=== PATIENT | male | born 1995 | race Caucasian/White ===

== ENCOUNTER 2024-02-24 22:11 | Inpatient (IN) | payer MEDICAID ==
[~2024-02-24] VITALS: Ht 182.9 cm; Wt 44.9 kg
[2024-02-24] MEDS: IV NORMAL SALINE 1000 ML BAG IV ONE (22:15)
[2024-02-24 22:32] LABS: BASOPHILS # (AUTO) 0.1 K/UL (0.0-0.2); BASOPHILS % (AUTO) 0.5 % (0.0-2.0); EOSINOPHILS % (AUTO) 0.1 % (0.0-7.0); HEMATOCRIT 31.6 % (36.7-47.1); HEMOGLOBIN 10.3 g/dL (12.5-16.3); LYMPHOCYTES % (AUTO) 7.9 % (20.5-51.5); MEAN CORPUSCULAR HEMOGLOBIN 24.8 uug (23.8-33.4); MEAN CORPUSCULAR HGB CONC 33 g/dL (32.5-36.3); MEAN CORPUSCULAR VOLUME 76.2 fL (73.0-96.2); MONOCYTES % (AUTO) 7.9 % (0.0-11.0); NEUTROPHILS % (AUTO) 83.6 % (38.5-71.5); PLATELET COUNT (AUTO) 470 K/uL (152-348); RED BLOOD CELL COUNT(AUTO) 4.15 MIL/uL (4.06-5.63); WHITE BLOOD COUNT (AUTO) 13.2 K/uL (3.6-10.2)
[2024-02-24 22:33] LABS: DIFFERENTIAL COMMENT 1
[2024-02-24 23:02] LABS: CALCIUM 8.2 mg/dL (8.5-10.1); CARBON DIOXIDE 23 mmol/L (21-32); CREATININE 0.9 mg/dL (0.6-1.3); GLUCOSE 147 mg/dL (74-106); NT-PRO BNP 127 pg/mL (0-125); UREA NITROGEN, BLOOD 10 mg/dL (7-18)
[2024-02-24 23:18] LABS: CHLORIDE 91 mmol/L (98-107); POTASSIUM 3.4 mmol/L (3.5-5.1); SODIUM SERUM 127 mmol/L (136-145)
[2024-02-24 23:25] LABS: LACTIC ACID 2.5 mmol/L (0.4-2.0)
[2024-02-24] MEDS ORDERED: SWABABLE VALVE TRANSFER SET EA MC ONE (23:48)
[2024-02-24] MEDS ORDERED: IOHEXOL 350 100 ML INFUS..BTL ONE (23:48)
[2024-02-24] MEDS ORDERED: IV NORMAL SALINE 250 ML IV ONE (23:48)
[2024-02-24] MEDS ORDERED: levoFLOXacin 500 MG/D5W 100 ML ONE (23:51)
[2024-02-25] MEDS: levoFLOXacin 500 MG/D5W 100ML PIGGYBACK IV ONE (00:10)
[2024-02-25 00:13] LABS: *BILIRUBIN,URIN NEGATIVE (NEGATIVE); *BLOOD, URINE NEGATIVE (NEGATIVE); *CLARITY,URINE CLEAR (CLEAR); *COLOR,URINE YELLOW (YELLOW); *KETONES,URINE NEGATIVE (NEGATIVE); *PROTEIN,URINE NEGATIVE (NEGATIVE); LEUKOCYTE ESTERASE ,URINE NEGATIVE (NEGATIVE); NITRITE, URINE NEGATIVE (NEGATIVE); UGLUCOSE NEGATIVE (NEGATIVE)
[2024-02-25] MEDS: IV LACTATED RINGERS SOLUTION 1,000 ML IV ONE (01:10)
[2024-02-25 01:38] LABS: BILIRUBIN,DIRECT 0.2 mg/dL (0.0-0.2); BILIRUBIN,TOTAL 0.6 mg/dL (0.2-1.0)
[2024-02-25 02:20] LABS: BACTERIA,URINE NONE SEEN /HPF (NONE SEEN); RBC,URINE 0-3 /HPF (0-3); SQUAMOUS EPITHELIAL CELL,UR FEW /HPF (NONE SEEN); WBC,URINE 0-3 /HPF (0-3)
[2024-02-25] MEDS ORDERED: ONDANSETRON 4 MG/2 ML VIAL IV PRN (03:00)
[2024-02-25] MEDS ORDERED: REMEDY ESSENTIAL ZINC PASTE 113 GM TP PRN (03:00)
[2024-02-25] MEDS ORDERED: IPRATROPIUM BROMIDE 0.5 MG/2.5 ML NEBU NEB PRN (03:00)
[2024-02-25] MEDS ORDERED: ACETAMINOPHEN 325 MG TABLET PO PRN (03:00)
[2024-02-25] MEDS ORDERED: MAGNESIUM HYDROXIDE 30 ML LIQUID UDC PO PRN (03:00)
[2024-02-25] MEDS ORDERED: ALBUTEROL SULFATE 2.5 MG/3 ML NEBU NEB PRN (03:00)
[2024-02-25] MEDS: POTASSIUM CHLORIDE 20 MEQ TAB.PRT.SR PO ONE ×2 (03:00→05:47)
[2024-02-25 03:48] LABS: *AMPHETAMINE, URINE NEGATIVE (NEGATIVE); *BARBITURATE, URINE NEGATIVE (NEGATIVE); *BENZODIAZEPINE, URINE NEGATIVE (NEGATIVE); *CANNABINOID, URINE NEGATIVE (NEGATIVE); *COCCAINE, URINE NEGATIVE (NEGATIVE); *OPIATE, URINE NEGATIVE (NEGATIVE); *PHENCYCLIDINE SCREEN,URINE NEGATIVE (NEGATIVE); FENTANYL, URINE NEGATIVE (NEGATIVE)
[2024-02-25 04:33] VITALS: BP 112/69; TEMP 98.5
[2024-02-25] MEDS: IV NS 1000 ML 1,000 ML IV PRN (05:33)
[2024-02-25] MEDS: ENOXAPARIN SODIUM 40 MG/0.4 ML DISP.SYRIN SQ SCH (05:48)
[2024-02-25] MEDS: PANTOPRAZOLE SODIUM 40 MG TABLET.DR PO SCH (06:10)
[2024-02-25] MEDS: LEVOTHYROXINE SODIUM 25 MCG TABLET PO SCH (06:11)
[2024-02-25 07:40] LABS: BASOPHILS # (AUTO) 0.1 K/UL (0.0-0.2); BASOPHILS % (AUTO) 0.6 % (0.0-2.0); EOSINOPHILS % (AUTO) 0.1 % (0.0-7.0); HEMATOCRIT 28.4 % (36.7-47.1); HEMOGLOBIN 9.3 g/dL (12.5-16.3); LYMPHOCYTES # (AUTO) 0.7 K/uL (0.8-4.8); MEAN CORPUSCULAR HEMOGLOBIN 24.9 uug (23.8-33.4); MEAN CORPUSCULAR HGB CONC 33 g/dL (32.5-36.3); MEAN CORPUSCULAR VOLUME 76.3 fL (73.0-96.2); MONOCYTES # (AUTO) 1.2 K/uL (0.1-1.30); MONOCYTES % (AUTO) 9.1 % (0.0-11.0); NEUTROPHILS # (AUTO) 11.3 K/uL (1.8-8.9); NEUTROPHILS % (AUTO) 85.2 % (38.5-71.5); PLATELET COUNT (AUTO) 448 K/uL (152-348); RED BLOOD CELL COUNT(AUTO) 3.72 MIL/uL (4.06-5.63); RED CELL DISTRIBUTION WIDTH 14.6 % (12.1-16.2); WHITE BLOOD COUNT (AUTO) 13.2 K/uL (3.6-10.2)
[2024-02-25 07:44] LABS: ALANINE AMINOTRANSFERASE 24 U/L (16-63); ALKALINE PHOSPHATASE 54 U/L (50-136); ASPARTATE AMINOTRANSFERASE 24 U/L (15-37); BILIRUBIN,DIRECT 0.3 mg/dL (0.0-0.2); BILIRUBIN,TOTAL 0.8 mg/dL (0.2-1.0); CARBON DIOXIDE 26 mmol/L (21-32); CHLORIDE 98 mmol/L (98-107); CREATININE 0.7 mg/dL (0.6-1.3); GLUCOSE 110 mg/dL (74-106); MAGNESIUM 2.1 mg/dL (1.8-2.4); POTASSIUM 3.7 mmol/L (3.5-5.1); SODIUM SERUM 133 mmol/L (136-145); TOTAL PROTEIN, SERUM 6.8 g/dL (6.4-8.2); UREA NITROGEN, BLOOD 6 mg/dL (7-18)
[2024-02-25 07:50] VITALS: BP 101/65; TEMP 98.4; O2SAT 99
[2024-02-25 07:51] LABS: DIFFERENTIAL COMMENT 1
[2024-02-25 07:53] LABS: THYROID STIMULATING HORMONE 5.185 mIU/mL (0.358-3.740)
[2024-02-25] MEDS: GUAIFENESIN/DEXTROMETHORPHAN 5 ML UDC PO PRN (09:34)
[2024-02-25 11:55] VITALS: BP 98/64; TEMP 97.7; O2SAT 100
[2024-02-25] MEDS: METRONIDAZOLE 500 MG/NS 100ML 500 MG in PREMIXED 1 EACH IV SCH (16:30)
[2024-02-25 17:10] LABS: HIV-1 p24 ANTIGEN NON REACTIVE (NONREACTIVE); HIV-1/2 ANTIBODY NON REACTIVE (NONREACTIVE)
[2024-02-25] MEDS ORDERED: VANCOMYCIN HCL 750 MG in IV DEXTROSE 5% 250 ML IV SCH ×2 (18:00→22:00)
[2024-02-25 20:00] VITALS: BP 98/59; TEMP 98.4; O2SAT 98
[2024-02-25] MEDS ORDERED: levoFLOXacin 500 MG/D5W 500 MG in PREMIXED 1 EACH IV SCH (23:00)
== END 2024-02-25 21:00 | disposition short-term general hospital (02) | DRG 720 ==
LOC: ER 22:13 → TELE-TD3 02-25 02:10
PROVIDERS: ADMIT Nurse Practitioner Family; ATTEND Nurse Practitioner Family
DX: A41.9 Sepsis, unspecified organism (principal); J18.8 Other pneumonia, unspecified organism; I31.39 Other pericardial effusion (noninflammatory); J47.0 Bronchiectasis with acute lower respiratory infection; E87.1 Hypo-osmolality and hyponatremia; E88.09 Other disorders of plasma-protein metabolism, not elsewhere classified; J91.8 Pleural effusion in other conditions classified elsewhere; I47.10 Supraventricular tachycardia, unspecified; R65.20 Severe sepsis without septic shock; E86.0 Dehydration; E87.6 Hypokalemia; E03.8 Other specified hypothyroidism; D50.9 Iron deficiency anemia, unspecified; R63.4 Abnormal weight loss; Z68.1 Body mass index [BMI] 19.9 or less, adult
CPT/HCPCS: 36415; 71045; 83605; 83735; 84100; 84443; 84484; 85025; 87040; 87806; 93005; G0378; J1650; J1956; J3490; J7040; J7050; J7120; Q9967